=== PATIENT | female | born 1960 | race African-American/Black ===

== ENCOUNTER 2018-03-01 08:24 | Outpatient (CLI) | payer BC ==
--- NOTE | 2018-03-01 11:53 | RAD ---
SMALL BOWEL SERIES: Date: 03/01/18 HISTORY: Abdominal pain. FINDINGS: There is prompt passage of contrast from the small bowel loops into the colon by 15 minutes. No abnor mal small bowel loop separation or dilatation is seen. The mucosal pattern appears normal. There is f illing of the appendix. Spot compression under fluoroscopy demonstrated no abnormalities. The termina l ileum appeared normal. IMPRESSION: Accelerated small bowel transit time. POS: DUSTY
== END 2018-03-01 08:25 | disposition home or self-care (01) ==
LOC: RAD 08:24
PROVIDERS: ATTEND Internal Medicine Gastroenterology
DX: R93.3 Abnormal findings on diagnostic imaging of other parts of digestive tract (principal)
CPT/HCPCS: 74250